=== PATIENT | male | born 1940 | race Hispanic/Latino ===

== ENCOUNTER 2018-09-01 10:43 | Emergency (ER) | payer MEDICARE ==
[2018-09-01] MEDS ORDERED: BOOSTRIX IM ONE (10:48)
--- NOTE | 2018-09-01 11:32 | Emergency Department Report ---
ED Head Injury/Laceration HPI - HPI Occurred When: Today Mechanism: Fall Location: Frontal Pain: Severe Tetanus Status: Unknown Symptoms: Loss of Consciousness: No, Nausea: No, Blurred Vision: No, Unusual Behavior: No, Headache: Yes, Swelling: Yes, Bruising: No, Break in Skin: No, Bleeding: Yes Other History: Mr. Ratliff is a very pleasant 78-year-old male who presents after head injury with laceration. He tripped on while walking up his porch steps. He fell and cut his forehead on the corner of a plastic toolbox. No LOC. He was able to get up on his own. He denies chest pain. No chest pain. No Back pain. No preceding symptoms. He has been in good health recently. He has 9/10 anterior sharp headache central centered on the forehead laceration. After the incident he was able to ambulate to a private vehicle. He was brought to the ED by family friend. He has hypersensitivity to tetanus shot. Otherwise has been in good health. In May he recovered from double pneumonia. He did not require hospitalization. He is closely followed by his PCP Dr. Maldonado. He has history of COPD. He's never had a stroke or heart attack. However he does have a "heart condition". Consequently takes both aspirin and Plavix. He has been taking both of these medications for the past 19 years. He stopped smoking cigarettes and drinking alcohol 19 years ago. He is a . His of lupus complications. He has 3 children. He has numerous grandchildren. All of his children and grandchildren live locally. He retired from a [employer] plant. 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 He is very active although he is a . 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 He enjoyes professional football. He is a fan of the [employer]. ED General PMH - Past Medical History General Medical History: heart disease, lung disease Surgical History: noncontributory - Family History Significant Family History: no pertinent family hx - Social History Smoking Status: Former Smoker Alcohol Use: sober ED Review of Systems ROS: Stated complaint: TRAUMA Other details as noted in HPI Comment: All other systems reviewed and negative Constitutional: denies: fever, malaise Respiratory: cough (chronic cough due to COPD) Cardiovascular: denies: chest pain Head Inj w/lac Physical Exam - Exam General: Vital signs noted. No distress. Alert and acting appropriately. Head: Yes PERRL, No Epistaxis, No Stepoff/Deformity, No Abrasion, No Foreign Body Laceration Location: Frontal Chest, Abd, & Ext: Yes Clear Lung Sounds, Yes Regular Heart Rhythm, No Neck Pain, No Chest Injury/Pain, No Abdominal Tenderness, No Back Tenderness, No Extremity Injury Neuroligical (Head Inj W/O Lac: Yes Normal Speech, Yes Normal Gait, No Lethargy, No Disorientation, No Focal Numbness, No Focal Weakness Exam: 4 cm horizontal jagged laceration with pulsatile bleeding right central forehead - Laceration /Wound Repair Right Anterior Head Wound Location: head, face Wound Length (cm): 4 Wound's Depth, Shape: into muscle, linear Wound Explored: clean Betadine Prep?: Yes Anesthesia: Lidocaine w/ Epi Volume Anesthetic (ccs): 6 Wound Debrided: minimal Wound Repaired With: sutures Suture Size/Type: 5:0, nylon Number of Sutures: 6 Layer Closure?: Yes Deep Layer Suture Size/Type: 4:0 Number Deep Layer Sutures: 2 Sterile Dressing Applied?: Yes Progress: Pulsatile bleeding require 2 sutures of 4-0 Vicryl figure 8 stitch 6 sutures 5-0 nylon simple interrupted superficial layer ED Critical Care Note - Critical Care Note Comments: He came to the bedside immediately upon notification by nurse. The patient required bleeding control. Due to sensitivity, tetanus booster was held. CT head: No skull fracture, no intracranial hemorrhage. Mr. Ratliff understood wound care instructions. He Understands to Keep the Bandage on for 2 Days Considering risk of the Bleeding. He Plans to Hold Aspirin and Plavix for the Next Few Days. I Did Agree That This Would Be Reasonable. He Also Understood Close Head Injury Instructions. Discharged home in stable and improved condition. I reviewed CT images personally. Also reviewed radiology report. No acute process with incidental findings noted. ED Disposition Clinical Impression: Closed head injury, Laceration of forehead, complicated Disposition: DC-01 TO HOME OR SELFCARE Is pt being admited?: No Does the pt Need Aspirin: No Condition: Stable Instructions: Suture Care (ED), Minor Head Injury (ED) Additional Instructions: Please return next week in 7 days to have the sutures removed. Please return sooner if you have signs of infection. Referrals: PRIMARY CARE, [Primary Care Provider] - 3-5 Days
[2018-09-01] MEDS ORDERED: TYLENOL PO ONE (11:39)
--- NOTE | 2018-09-01 12:39 | Cat Scan Report ---
CT HEAD WITHOUT CONTRAST INDICATION: Elderly head trauma on aspirin/Plavix. COMPARISON: None similar. FINDINGS: Noncontrast head CT demonstrates age-appropriate, mildly enlarged ventricles and sulci. Slight periventricular hypodensities. No definite acute infarct, hemorrhage, mass effect or midline shift. No abnormal extra-axial fluid collections. Normal posterior fossa with preserved basilar cisterns. Possible bilateral cataract surgery. Rightward nasal septal deviation anteriorly. Slight frontoethmoid mucosal thickening, right more than left. Clear remainder imaged paranasal sinuses and mastoid air cells. Mild atherosclerotic ICA calcifications. Intact calvarium. Slight frontal scalp soft tissue swelling or scar, more so on the right as on axial image 32. Please correlate. Edentulous mandible and possible maxillary denture. CONCLUSION: No acute intracranial CT abnormality with few incidental findings, as above. Please correlate. Thank you for the opportunity to participate in this patient's care.
[2018-09-01 13:04] VITALS: BP 130/75
== END 2018-09-01 13:08 | disposition home or self-care (01) ==
LOC: ED 10:43
DX: S09.8XXA Other specified injuries of head, initial encounter (principal); S01.81XA Laceration without foreign body of other part of head, initial encounter; Z87.891 Personal history of nicotine dependence; Z88.6 Allergy status to analgesic agent; W01.198A Fall on same level from slipping, tripping and stumbling with subsequent striking against other object, initial encounter; Y93.01 Activity, walking, marching and hiking; Y99.8 Other external cause status; Y92.019 Unspecified place in single-family (private) house as the place of occurrence of the external cause
CPT/HCPCS: 70450; 99283

== ENCOUNTER 2018-09-09 08:33 | Emergency (ER) | payer MEDICARE ==
--- NOTE | 2018-09-09 08:51 | Emergency Department Report ---
Suture/Staple Removal - [facility] Chief Complaint: Laceration/Recheck/Suture Stated Complaint: STITCHES REMOVED Time Seen by Provider: 09/09/18 08:45 When Sutures or [place] Placed: 5-7 Days Ago Wound Location: forehead ED Review of Systems ROS: Stated complaint: STITCHES REMOVED Other details as noted in HPI Constitutional: denies: chills, fever Eyes: denies: eye pain, eye discharge, vision change ENT: denies: ear pain, throat pain Respiratory: denies: cough, shortness of breath, wheezing Cardiovascular: denies: chest pain, palpitations Endocrine: no symptoms reported Gastrointestinal: denies: abdominal pain, nausea, diarrhea Genitourinary: denies: urgency, dysuria Musculoskeletal: denies: back pain, joint swelling, arthralgia Skin: denies: rash, lesions Neurological: denies: headache, weakness, paresthesias Psychiatric: denies: anxiety, depression Hematological/Lymphatic: denies: easy bleeding, easy bruising ED Past Medical Hx - Past Medical History Hx Hypertension: Yes Hx GERD: Yes Hx Arthritis: Yes Hx COPD: Yes Additional medical history: ANGINA - Surgical History Additional Surgical History: HIATAL HERNIA. LEFT ANKLE SURGERY - Social History Smoking Status: Never Smoker Substance Use Type: None - Medications Home Medications: Home Medications Medication Instructions Recorded Confirmed Last Taken Type Aspirin BABY CHEW TAB 04/06/15 04/06/15 Unknown History Clopidogrel [Plavix] 04/06/15 04/06/15 Unknown History Suture Removal Exam - Exam General: Vital signs noted. No distress. Alert and acting appropriately. Wound: No Pathologic Erythema, No Tenderness, No Drainage, No Pus, No Wound Dehiscence Other Systems: All other systems reviewed and are unremarkable. wound healing wall. no cellulitis or discharge. no edema ED Course Vital Signs 09/09/18 08:39 Temperature 98.5 F Pulse Rate 69 Respiratory 18 Rate Blood Pressure 132/59 O2 Sat by Pulse 99 Oximetry ED Recheck MDM - Differential Diagnosis Wound Recheck, Suture/Staple Removal (six removed without complications. ) Critical care attestation.: If time is entered above; I have spent that time in minutes in the direct care of this critically ill patient, excluding procedure time. ED Disposition Clinical Impression: Visit for suture removal Disposition: - TO HOME OR SELFCARE Is pt being admited?: No Does the pt Need Aspirin: No Condition: Stable Instructions: Suture Removal (ED) Referrals: [facility] [Provider Group] - 3-5 Days
== END 2018-09-09 09:11 | disposition home or self-care (01) ==
LOC: ED 08:33

== ENCOUNTER 2019-06-05 14:35 | Inpatient (IN) | payer MEDICARE ==
[2019-06-05] MEDS ORDERED: D50W (25GM) Syringe IV ONE ×3 (14:49→22:58)
[2019-06-05 15:17] LABS: Basophils % (Auto) 0.3 % (0.0-1.8); Eosinophils % (Auto) 0.3 % (0.0-4.3); Hematocrit 30.2 % (35.5-45.6); Hemoglobin 10.2 gm/dl (11.8-15.2); Lymphocytes % (Auto) 8.3 % (13.4-35.0); Mean Corpuscular HGB Conc 34 % (32-34); Mean Corpuscular Volume 96 fl (84-94); Monocytes # (Auto) 0.6 K/mm3 (0.0-0.8); Monocytes % (Auto) 5.5 % (0.0-7.3); Platelet Count 196 K/mm3 (140-440); Red Blood Count 3.15 M/mm3 (3.65-5.03)
--- NOTE | 2019-06-05 15:32 | Emergency Department Report ---
ED General Adult HPI - General Chief complaint: Hypoglycemia Stated complaint: DIABETIC/HYPOGLYCEMIA Time Seen by Provider: 06/05/19 14:52 Source: patient, EMS Mode of arrival: Stretcher Limitations: No Limitations - History of Present Illness Initial comments: This is a 79-year-old male who is presenting with a low blood sugar. Patient states he was at home and was having a difficult time walking paramedics were called. Glucose was 26 at the time of their arrival. She was started on D5 and on arrival his blood sugar was 56. Patient given amp of D50 and now the patient states he feels improved. Patient's is back to baseline. Patient states he does not have a history of diabetes and is not on insulin or oral hypoglycemics. Patient states he was told that he may have borderline diabetes in the past. Patient denies any chest pain shortness of breath fevers chills nausea vomiting diarrhea. - Related Data Home Medications Medication Instructions Recorded Confirmed Last Taken Aspirin BABY CHEW TAB 04/06/15 04/06/15 Unknown Clopidogrel [Plavix] 04/06/15 04/06/15 Unknown Allergies Allergy/AdvReac Type Severity Reaction Status Date / Time ibuprofen AdvReac STOMACH Verified 09/09/18 08:39 UPSET TETANUS AdvReac Rash Uncoded 04/06/15 14:15 ED Review of Systems ROS: Stated complaint: DIABETIC/HYPOGLYCEMIA Other details as noted in HPI Comment: All other systems reviewed and negative ED Past Medical Hx - Past Medical History Previous Medical History?: Yes Hx Hypertension: Yes Hx GERD: Yes Hx Arthritis: Yes Hx COPD: Yes Additional medical history: ANGINA - Surgical History Past Surgical History?: Yes Additional Surgical History: HIATAL HERNIA. LEFT ANKLE SURGERY - Social History Smoking Status: Former Smoker Substance Use Type: None - Medications Home Medications: Home Medications Medication Instructions Recorded Confirmed Last Taken Type Aspirin BABY CHEW TAB 04/06/15 04/06/15 Unknown History Clopidogrel [Plavix] 04/06/15 04/06/15 Unknown History ED Physical Exam - General Limitations: No Limitations General appearance: alert, in no apparent distress - Head Head exam: Present: atraumatic, normocephalic - Eye Eye exam: Present: normal appearance, PERRL, EOMI - ENT ENT exam: Present: mucous membranes moist - Neck Neck exam: Present: normal inspection - Respiratory Respiratory exam: Present: normal lung sounds bilaterally, wheezes, rales, rhonchi, stridor. Absent: respiratory distress - Cardiovascular Cardiovascular Exam: Present: regular rate, normal rhythm. Absent: systolic murmur, diastolic murmur, rubs, gallop - GI/Abdominal GI/Abdominal exam: Present: soft, normal bowel sounds - Rectal Rectal exam: Present: deferred - Extremities Exam Extremities exam: Present: normal inspection - Back Exam Back exam: Present: normal inspection - Neurological Exam Neurological exam: Present: alert, oriented X3 - Psychiatric Psychiatric exam: Present: normal affect, normal mood - Skin Skin exam: Present: warm, dry, intact, normal color. Absent: rash ED Course Vital Signs 06/05/19 06/05/19 14:45 14:56 Temperature 98.2 F Pulse Rate 74 Respiratory 16 Rate Blood Pressure 121/43 121/43 O2 Sat by Pulse 95 97 Oximetry ED Medical Decision Making - Lab Data Result diagrams: 06/05/19 15:04 06/05/19 15:04 Lab Results 06/05/19 06/05/19 06/05/19 Range/Units 14:52 15:04 15:04 WBC 11.6 H (4.5-11.0) K/mm3 RBC 3.15 L (3.65-5.03) M/mm3 Hgb 10.2 L (11.8-15.2) gm/dl Hct 30.2 L (35.5-45.6) % MCV 96 H (84-94) fl MCH 32 (28-32) pg MCHC 34 (32-34) % RDW 14.0 (13.2-15.2) % Plt Count 196 (140-440) K/mm3 Lymph % (Auto) 8.3 L (13.4-35.0) % Ray % (Auto) 5.5 (0.0-7.3) % Eos % (Auto) 0.3 (0.0-4.3) % Baso % (Auto) 0.3 (0.0-1.8) % Lymph # 1.0 L (1.2-5.4) K/mm3 Ray # 0.6 (0.0-0.8) K/mm3 Eos # 0.0 (0.0-0.4) K/mm3 Baso # 0.0 (0.0-0.1) K/mm3 Seg Neutrophils % 85.6 H (40.0-70.0) % Seg Neutrophils # 10.0 H (1.8-7.7) K/mm3 Sodium 135 L (137-145) mmol/L Potassium 4.7 (3.6-5.0) mmol/L Chloride 98.0 (98-107) mmol/L Carbon Dioxide 21 L (22-30) mmol/L Anion Gap 21 mmol/L BUN 42 H (9-20) mg/dL Creatinine 2.7 H (0.8-1.5) mg/dL Estimated GFR 23 ml/min BUN/Creatinine Ratio 16 % Glucose 167 H (75-100) mg/dL POC Glucose 52 L (70-105) Calcium 8.5 (8.4-10.2) mg/dL - Medical Decision Making After receiving D50 and eating the patient's blood sugars normalized. Patient states he does not take insulin or oral hypoglycemics. Patient's family is arrived states that he lives alone and they think he may not be eating and drinking well. Patient states he did have some Gatorade last night. Patient states he doesn't remember if he 8. Patient also after we discussed his laboratory studies stated that his mouth was dry. Patient does have a prerenal pattern for his kidney function. Patient received normal saline for hydration. Patient be admitted to the hospitalist service for further observation and workup for hypoglycemia of unknown etiology. Critical care attestation.: If time is entered above; I have spent that time in minutes in the direct care of this critically ill patient, excluding procedure time. ED Disposition Clinical Impression: Hypoglycemia, Acute renal insufficiency, Dehydration Disposition: OP ADMIT IP TO THIS HOSP Is pt being admited?: Yes Does the pt Need Aspirin: No Condition: Stable Time of Disposition: 16:52
[2019-06-05 15:39] LABS: Calcium 8.5 mg/dL (8.4-10.2)
[2019-06-05] MEDS ORDERED: NACL 0.9% 1000 ML 1,000 ML IV ONE (16:05)
[2019-06-05] MEDS ORDERED: NACL 0.9% 500 ML 500 ML IV ONE (16:42)
--- NOTE | 2019-06-05 16:56 | History and Physical Report ---
History of Present Illness Chief complaint: I feel weak History of present illness: 79 YO Male with HTN, GERD, OA, COPD presents to ED for evaluation. Pt states that he has experienced weakness over the past 1 week, and has a difficult time walking. Pt acknowledges recurrent falls. EMS notified, and upon arrival the p bridget was found to have weakness, and hypoglycemia with blood glucose in the 50's. Pt subsequently transported to [facility]. Pt seen and evaluated in ED and found to have Acute Kidney Injury, SIRS suspected secondary to UTI. Pt admitted to ABBI unit and initiated on IV antibiotic therapy. PT consulted for debility complicated by recurrent falls. Pt denies fever, chills, CP, Palpitations, Syncope, BRBPR, Productive cough, skin rash, vertigo, loss of bowel/bladder continence, unilateral leg swelling, calf pain, prolonged travel/immobiilty, Individual/Family History of DVT/PE/Bleeding/Blood Clotting Disorders. No prior admission for review. No medication listed for reconciliation at time of admission. Past History Past Medical History: other (see hpi) Past Surgical History: hernia repair, Other (ankle surgery) Social history: , Lives alone. denies: smoking, alcohol abuse, prescription drug abuse Family history: hypertension Medications and Allergies Allergies Allergy/AdvReac Type Severity Reaction Status Date / Time ibuprofen AdvReac STOMACH Verified 09/09/18 08:39 UPSET TETANUS AdvReac Rash Uncoded 04/06/15 14:15 Home Medications Medication Instructions Recorded Confirmed Last Taken Type Aspirin BABY CHEW TAB 04/06/15 04/06/15 Unknown History Clopidogrel [Plavix] 04/06/15 04/06/15 Unknown History Active Meds: Active Medications Sodium Chloride (Nacl 0.9% 1000 Ml) 1,000 mls @ 999 mls/hr IV BOLUS ONE Stop: 06/05/19 17:05 Sodium Chloride (Nacl 0.9% 500 Ml) 500 mls @ 999 mls/hr IV ONCE ONE Stop: 06/05/19 17:12 Review of Systems Constitutional: weakness, no weight loss, no weight gain, no fever, no chills Ears, nose, mouth and throat: no ear pain, no ear discharge, no tinnitis, no decreased hearing, no nasal congestion, no nasal discharge Cardiovascular: no chest pain, no orthopnea, no palpitations, no rapid/irregular heart beat, no edema Respiratory: no cough, no cough with sputum, no excessive sputum, no hemoptysis, no dyspnea on exertion Gastrointestinal: no nausea, no vomiting, no diarrhea, no constipation Genitourinary Male: no hematuria, no flank pain, no discharge, no urinary frequency, no urinary hesitancy Rectal: no pain, no incontinence, no bleeding Musculoskeletal: no neck stiffness, no neck pain, no shooting arm pain, no arm numbness/tingling, no low back pain, no shooting leg pain Integumentary: no rash, no pruritis, no redness, no sores, no wounds Neurological: weakness, no head injury, no transient paralysis, no paralysis, no numbness, no tingling, no seizures Psychiatric: no anxiety, no memory loss, no change in sleep habits, no sleep disturbances, no insomnia, no hypersomnia, no change in appetite, no change in libido, no suicidal ideation Endocrine: no cold intolerance, no heat intolerance, no polyphagia, no excessive thirst, no polydipsia, no polyuria, no nocturia, no flushing Hematologic/Lymphatic: no easy bruising, no easy bleeding, no lymphadenopathy, no lymphedema Allergic/Immunologic: no urticaria, no wheezing, no persistent infections, no anaphylaxis Exam - Constitutional Vitals: Temp Pulse Resp BP Pulse Ox 98.2 F 74 16 121/43 97 06/05/19 14:56 06/05/19 14:56 06/05/19 14:56 06/05/19 14:56 06/05/19 14:56 General appearance: Present: mild distress - EENT Eyes: Present: PERRL ENT: hearing intact, clear oral mucosa - Neck Neck: Present: supple, normal ROM - Respiratory Respiratory effort: normal Respiratory: bilateral: CTA - Cardiovascular Heart Sounds: Present: S1 & S2. Absent: rub, click - Extremities Extremities: pulses symmetrical, No edema Peripheral Pulses: within normal limits - Abdominal General gastrointestinal: Present: soft, non-tender, non-distended, normal bowel sounds Male genitourinary: Present: normal - Integumentary Integumentary: Present: clear, warm, dry - Musculoskeletal Musculoskeletal: generalized weakness - Psychiatric Psychiatric: appropriate mood/affect, intact judgment & insight - Neurologic Neurologic: CNII-XII intact, moves all extremities, no gait normal Results - Labs CBC & Chem 7: 06/05/19 15:04 06/05/19 15:04 Labs: Abnormal lab results 06/05/19 06/05/19 06/05/19 Range/Units 14:52 15:04 15:04 WBC 11.6 H (4.5-11.0) K/mm3 RBC 3.15 L (3.65-5.03) M/mm3 Hgb 10.2 L (11.8-15.2) gm/dl Hct 30.2 L (35.5-45.6) % MCV 96 H (84-94) fl Lymph % (Auto) 8.3 L (13.4-35.0) % Lymph # 1.0 L (1.2-5.4) K/mm3 Seg Neutrophils % 85.6 H (40.0-70.0) % Seg Neutrophils # 10.0 H (1.8-7.7) K/mm3 Sodium 135 L (137-145) mmol/L Carbon Dioxide 21 L (22-30) mmol/L BUN 42 H (9-20) mg/dL Creatinine 2.7 H (0.8-1.5) mg/dL Glucose 167 H (75-100) mg/dL POC Glucose 52 L (70-105) Assessment and Plan - Patient Problems (1) TAMICA (acute kidney injury) Current Visit: Yes Status: Acute Plan to address problem: IVF resuscitation therapy, urine electrolytes, nephrology consulted, renal ultrasound, monitor uop q shift, avoid nephrotoxic agents (2) UTI (urinary tract infection) Current Visit: Yes Status: Acute Qualifiers: Encounter type: initial encounter Plan to address problem: IV antibiotic therapy, urinalysis, CBC, CMP, (3) SIRS due to infectious process with organ dysfunction Current Visit: Yes Status: Acute Plan to address problem: IV antibiotic therapy, IVF resuscitation therapy, CBC, CMP, chest x ray, ur inalysis, (4) COPD (chronic obstructive pulmonary disease) Current Visit: Yes Status: Acute Qualifiers: Emphysema type: unspecified Plan to address problem: chest x ray, supplemental oxygen, nebulizer therapy, pulmonary toilet (5) Debility Current Visit: Yes Status: Acute Plan to address problem: PT consulted, supportive care. (6) Advance care planning Current Visit: Yes Status: Acute Plan to address problem: +30 minutes, Discussed code status, PT, possible need for PT, Inpatient rehab versus home PT. (7) DVT prophylaxis Current Visit: Yes Status: Acute Plan to address problem: SCD to BLE while in bed, supportive care.
[2019-06-05] MEDS ORDERED: PROVENTIL IH PRN (16:57)
[2019-06-05] MEDS ORDERED: ZOFRAN IV PRN (16:57)
[2019-06-05] MEDS ORDERED: TYLENOL PO PRN (16:57)
[2019-06-05] MEDS ORDERED: SODIUM CHLORIDE FLUSH SYRINGE 10 ML IV PRN (16:57)
--- NOTE | 2019-06-05 17:51 | XRay Report ---
CHEST 1 VIEW INDICATION / CLINICAL INFORMATION: dypsnea. COMPARISON: None available. FINDINGS: SUPPORT DEVICES: None. HEART / MEDIASTINUM: No significant abnormality. LUNGS / PLEURA: No significant pulmonary or pleural abnormality. No pneumothorax. There are few incre ased markings at the right base. ADDITIONAL FINDINGS: No significant additional findings. IMPRESSION: 1. No significant change Signer Name: Krystian Dueñas MD Signed: 06/05/2019 5:46 PM Workstation Name: [id number]
[2019-06-05] MEDS ORDERED: ROCEPHIN/NS 1 GM/50 ML 1 GM/50 ML BAG IV SCH (18:00)
[2019-06-05] MEDS ORDERED: ROCEPHIN/NS 1 GM/50 ML 1 GM/50 ML BAG IV ONE (18:30)
--- NOTE | 2019-06-05 19:23 | Ultrasound Report ---
ULTRASOUND RENAL INDICATION: deirdre. COMPARISON: No relevant prior imaging study available. FINDINGS: RIGHT KIDNEY: Size: 11.2 cm. Echogenicity: Normal. Cortical thickness: Normal. Hydronephrosis: None. Cyst or mass: None. Stones: None. LEFT KIDNEY: Size: 13.6 cm. Echogenicity: Normal. Cortical thickness: Normal. Hydronephrosis: None. Cyst or mass: None. Stones: None. Urinary Bladder: No significant abnormality. Free Fluid: None. Additional Findings: None. IMPRESSION 1. No acute sonographic abnormality of the kidneys. Signer Name: Krystian Dueñas MD Signed: 06/05/2019 7:19 PM Workstation Name: [id number]
[2019-06-05] MEDS: SODIUM CHLORIDE FLUSH SYRINGE 10 ML IV SCH (22:24)
[2019-06-06] MEDS ORDERED: D10W IV ONE (01:00)
[2019-06-06] MEDS ORDERED: D10W 250 ML IV SCH (01:00)
--- NOTE | 2019-06-06 01:00 | Event Note ---
Date: 06/06/19 PATIENT WITH PERXISTENT HYPOGLYCEMIA DESPITE THE INJECTION OF AMP OD D50W. PLAN; WILL START PATIENT ON I.V D10W AT 50ML/HR FOR A TOTAL OF 250 ML WITH HOURLY ACCUCHECKS
[2019-06-06 03:42] LABS: Creatinine,Urine 73.5 mg/dL (0.1-20.0)
[2019-06-06 03:48] LABS: Bilirubin,Urine NEG (Negative); Blood,Urine NEG (Negative); Color,Urine Yellow (Yellow); Mucus,Urine FEW /HPF; Protein,Urine <15 mg/dL mg/dL (Negative); Urobilinogen,Urine < 2.0 mg/dL (<2.0); WBC,Urine < 1.0 /HPF (0.0-6.0)
[2019-06-06] MEDS ORDERED: GLUCAGEN IM ONE (04:00)
[2019-06-06] MEDS ORDERED: D50W (25GM) Syringe IV PRN (06:03)
[2019-06-06] MEDS ORDERED: GLUCAGEN IM PRN (06:05)
[2019-06-06 06:20] LABS: Basophils # (Auto) 0.1 K/mm3 (0.0-0.1); Basophils % (Auto) 1.1 % (0.0-1.8); Eosinophils % (Auto) 0.4 % (0.0-4.3); Hemoglobin 9.7 gm/dl (11.8-15.2); Lymphocytes # (Auto) 1.7 K/mm3 (1.2-5.4); Mean Corpuscular HGB Conc 34 % (32-34); Mean Corpuscular Volume 96 fl (84-94); Monocytes # (Auto) 0.8 K/mm3 (0.0-0.8); Monocytes % (Auto) 7.4 % (0.0-7.3); Platelet Count 192 K/mm3 (140-440); Red Blood Count 3.02 M/mm3 (3.65-5.03); Red Cell Distribution Width 14.3 % (13.2-15.2)
[2019-06-06 06:40] LABS: Calcium 8.1 mg/dL (8.4-10.2)
[2019-06-06] MEDS: HumuLIN R SUB-Q SCH ×4 (07:33→22:24)
--- NOTE | 2019-06-06 07:54 | Progress Note ---
Assessment and Plan Assessment and plan: 79 YO Male with HTN, GERD, OA, COPD presents to ED for evaluation. Pt states that he has experienced weakness over the past 1 week, and has a difficult time walking. Pt acknowledges recurrent falls. EMS notified, and upon arrival the patient was found to have weakness, and hypoglycemia with blood glucose in the 50's. Pt subsequently transported to [facility]. Pt denies fever, chills, CP, Palpitations, Syncope, BRBPR, Productive cough, skin rash, vertigo, loss of bowel/bladder continence, unilateral leg swelling, calf pain, prolonged travel/immobiilty, Individual/Family History of DVT/PE/Bleeding/Blood Clotting Disorders * In ED and found to have Acute Kidney Injury, SIRS suspected secondary to UTI. * Pt admitted to ABBI unit and initiated on IV antibiotic therapy. PT consulted for debility complicated by recurrent falls. No prior admission for review. * Hypoglycemia persisted through the night, started on D5 this am. * Patient states he does not take insulin or oral hypoglycemics and although had been diagnosed with boardline DM is not on any medication. Patient's family is arrived states that he lives alone and they think he may not be eating and drinking well. Renal Ultrasound: IMPRESSION 1. No acute sonographic abnormality of the kidneys. CXR: IMPRESSION: 1. No significant change (1) Hypoglycemia-Persistent Start on D5 Recheck K at noon. work up for hypoglycemia (2) TAMICA (acute kidney injury) SECONDARY TO VASOMOTOR NEPHROPATHY Current Visit: Yes Status: Acute Plan to address problem: IVF resuscitation therapy, urine electrolytes, nephrology consulted, renal ultrasound, monitor uop q shift, avoid nephrotoxic agents (3) UTI (urinary tract infection)- RULED OUT Will stop empiric antibiotics (4) SIRS due to infectious process with organ dysfunction Current Visit: Yes Status: Acute Plan to address problem: IV antibiotic therapy, IVF resuscitation therapy, CBC, CMP, chest x ray, urinalysis, (4) COPD (chronic obstructive pulmonary disease) Current Visit: Yes Status: Acute Qualifiers: Emphysema type: unspecified Plan to address problem: Chest x ray reviewed supplemental oxygen, nebulizer therapy, pulmonary toilet (5) Debility Current Visit: Yes Status: Acute Plan to address problem: PT consulted, supportive care. (6) Advance care planning Current Visit: Yes Status: Acute Plan to address problem: +30 minutes, Discussed code status, PT, possible need for PT, Inpatient rehab versus home PT. (7) Poor Po intake Countersinker consult (8)DVT prophylaxis Current Visit: Yes Status: Acute Plan to address problem: SCD to BLE while in bed, supportive care. History Interval history: f/u Hypoglycemia and frequent falls Hospitalist Physical - Constitutional Vitals: Temp Pulse Resp BP Pulse Ox 97.8 F 66 20 110/43 98 06/06/19 02:16 06/06/19 02:16 06/06/19 02:16 06/06/19 02:16 06/06/19 02:16 General appearance: Present: mild distress - EENT Eyes: Present: PERRL, EOM intact ENT: hearing intact - Neck Neck: Present: supple, normal ROM - Respiratory Respiratory effort: normal Respiratory: bilateral: CTA - Cardiovascular Rhythm: regular Heart Sounds: Present: S1 & S2. Absent: systolic murmur, diastolic murmur - Extremities Extremities: no ischemia, pulses intact, pulses symmetrical, No edema, normal temperature, normal color, Full ROM Peripheral Pulses: within normal limits - Abdominal General gastrointestinal: soft, non-tender, distended, normal bowel sounds - Integumentary Integumentary: Present: clear, warm - Psychiatric Psychiatric: appropriate mood/affect, cooperative - Neurologic Neurologic: CNII-XII intact, moves all extremities, other - Allied Health Allied health notes reviewed: nursing Results - Labs CBC & Chem 7: 06/06/19 05:43 06/06/19 05:43 Labs: Laboratory Last Values WBC 11.0 K/mm3 (4.5-11.0) 06/06/19 05:43 RBC 3.02 M/mm3 (3.65-5.03) L 06/06/19 05:43 Hgb 9.7 gm/dl (11.8-15.2) L 06/06/19 05:43 Hct 29.0 % (35.5-45.6) L 06/06/19 05:43 MCV 96 fl (84-94) H 06/06/19 05:43 MCH 32 pg (28-32) 06/06/19 05:43 MCHC 34 % (32-34) 06/06/19 05:43 RDW 14.3 % (13.2-15.2) 06/06/19 05:43 Plt Count 192 K/mm3 (140-440) 06/06/19 05:43 Lymph % (Auto) 15.0 % (13.4-35.0) 06/06/19 05:43 [place] % (Auto) 7.4 % (0.0-7.3) H 06/06/19 05:43 Eos % (Auto) 0.4 % (0.0-4.3) 06/06/19 05:43 Baso % (Auto) 1.1 % (0.0-1.8) 06/06/19 05:43 Lymph # 1.7 K/mm3 (1.2-5.4) 06/06/19 05:43 [place] # 0.8 K/mm3 (0.0-0.8) 06/06/19 05:43 Eos # 0.0 K/mm3 (0.0-0.4) 06/06/19 05:43 Baso # 0.1 K/mm3 (0.0-0.1) 06/06/19 05:43 Seg Neutrophils % 76.1 % (40.0-70.0) H 06/06/19 05:43 Seg Neutrophils # 8.4 K/mm3 (1.8-7.7) H 06/06/19 05:43 Sodium 137 mmol/L (137-145) 06/06/19 05:43 Potassium 5.1 mmol/L (3.6-5.0) H 06/06/19 05:43 Chloride 101.3 mmol/L (98-107) 06/06/19 05:43 Carbon Dioxide 22 mmol/L (22-30) 06/06/19 05:43 Anion Gap 19 mmol/L 06/06/19 05:43 BUN 40 mg/dL (9-20) H 06/06/19 05:43 Creatinine 2.3 mg/dL (0.8-1.5) H 06/06/19 05:43 Estimated GFR 27 ml/min 06/06/19 05:43 BUN/Creatinine Ratio 17 % 06/06/19 05:43 Glucose 23 mg/dL (75-100) L* 06/06/19 05:43 POC Glucose 121 (70-105) H 06/06/19 07:38 Calcium 8.1 mg/dL (8.4-10.2) L 06/06/19 05:43 Phosphorus 2.70 mg/dL (2.5-4.5) 06/06/19 05:43 Magnesium 2.40 mg/dL (1.7-2.3) H 06/06/19 05:43 Urine Color Yellow (Yellow) 06/06/19 03:17 Urine Turbidity Clear (Clear) 06/06/19 03:17 Urine pH 5.0 (5.0-7.0) 06/06/19 03:17 Ur Specific [place] 1.011 (1.003-1.030) 06/06/19 03:17 Urine Protein <15 mg/dl mg/dL (Negative) 06/06/19 03:17 Urine Glucose (UA) Neg mg/dL (Negative) 06/06/19 03:17 Urine Ketones Neg mg/dL (Negative) 06/06/19 03:17 Urine Blood Neg (Negative) 06/06/19 03:17 Urine Nitrite Neg (Negative) 06/06/19 03:17 Urine Bilirubin Neg (Negative) 06/06/19 03:17 Urine Urobilinogen < 2.0 mg/dL (<2.0) 06/06/19 03:17 Ur Leukocyte Esterase Neg (Negative) 06/06/19 03:17 Urine WBC (Auto) < 1.0 /HPF (0.0-6.0) 06/06/19 03:17 Urine RBC (Auto) 1.0 /HPF (0.0-6.0) 06/06/19 03:17 U Epithel Cells (Auto) < 1.0 /HPF (0-13.0) 06/06/19 03:17 Urine Mucus Few /HPF 06/06/19 03:17 Urine Creatinine 73.5 mg/dL (0.1-20.0) H 06/06/19 03:18 Urine Sodium 33 mmol/L 06/06/19 03:18 Active Medications - Current Medications Current Medications: Generic Name Dose Route Start Last Admin Trade Name Freq PRN Reason Stop Dose Admin Acetaminophen 650 mg 06/05/19 16:57 Tylenol PO Q4H PRN Pain MILD(1-3)/Fever >100.5/ROSE Albuterol 2.5 mg 06/05/19 16:57 Proventil IH Q4HRT PRN Shortness Of Breath Dextrose 50 ml 06/06/19 06:03 06/06/19 06:53 D50w (25gm) Syringe IV 50 ml PRN PRN Administration Hypoglycemia Glucagon 0.5 mg 06/06/19 06:05 Glucagen IM PRN PRN Hypoglycemia Ceftriaxone Sodium 1 gm in 50 mls @ 100 mls/hr 06/05/19 18:00 06/05/19 18:31 Rocephin/Ns 1 Gm/50 Ml IV 100 mls/hr Q24H MARIAH Administration Protocol Dextrose/Sodium Chloride 1,000 mls @ 75 mls/hr 06/06/19 08:00 D5ns IV DIRECT MARIAH Insulin Human Regular 0 units 06/06/19 07:30 06/06/19 07:33 Humulin R SUB-Q Not Given ACHS MARIAH Protocol Ondansetron HCl 4 mg 06/05/19 16:57 Zofran IV Q8H PRN Nausea And Vomiting Sodium Chloride 10 ml 06/05/19 22:00 06/05/19 22:24 Sodium Chloride Flush Syringe 10 Ml IV 10 ml BID MARIAH Administration Sodium Chloride 10 ml 06/05/19 16:57 Sodium Chloride Flush Syringe 10 Ml IV PRN PRN LINE FLUSH
[2019-06-06] MEDS ORDERED: D5NS 1,000 ML IV SCH (08:00)
[2019-06-06] MEDS: SODIUM CHLORIDE FLUSH SYRINGE 10 ML IV SCH ×2 (09:45→21:05)
[2019-06-06] MEDS ORDERED: NITROMIST TL PRN (10:59)
--- NOTE | 2019-06-06 11:37 | Cat Scan Report ---
CT ABDOMEN AND PELVIS WITHOUT CONTRAST HISTORY: Hypoglycemia. COMPARISON: None TECHNIQUE: Routine abdominal and pelvic CT exam performed without contrast. Lack of intravenous cont rast limits evaluation of the vascular and solid organs.. All CT scans at this location are performed using CT dose reduction for ALARA by means of automated exposure control. FINDINGS: CT ABDOMEN: Lung Bases: No significant abnormality. Liver: Normal. Biliary: The gallbladder is contracted with no stones. No pericholecystic fluid. Normal bile ducts. Spleen: No significant abnormality. Unenlarged. Pancreas: Mild fatty replacement. Adrenals: Normal. Kidneys: Bilateral nonspecific perinephric stranding. The renal collecting systems and ureters are no ndilated. No renal mass, calculus or cyst. Lymphatics: No lymphadenopathy. Vasculature: Moderate atherosclerotic calcification and tortuosity of the abdominal aorta. Bowel/Peritoneum: No significant abnormality. No free air. No free fluid. A large volume of stool thr oughout the colon. Postsurgical changes consistent with appendectomy. CT PELVIC: : Mild nonspecific thickening of the urinary bladder wall. No mass or calculus. Lymphatics: No lymphadenopathy. Normal rectum. Mild diverticulosis of a redundant sigmoid colon but no diverticulitis. Osseous Structures: No aggressive appearing osseous lesions. Additional Findings: None IMPRESSION: 1. Mild fatty replacement of the pancreas. 2. No mass. 3. Mild diverticulosis but no diverticulitis. Signer Name: Peng Marcano MD Signed: 06/06/2019 11:33 AM Workstation Name: [id number]
[2019-06-06] MEDS ORDERED: D10W 1,000 ML IV SCH (12:00)
[2019-06-06] MEDS ORDERED: NITROSTAT SL PRN (16:13)
--- NOTE | 2019-06-06 21:01 | Consultation ---
History of Present Illness - Reason for Consult Consult date: 06/06/19 acute renal failure, chronic renal failure, hyperkalemia - History of Present Illness The patient is an 79 YO male with history significant for HTN, GERD, OA, COPD and ?CKD who was brought into [facility] ED by EMS for evaluation of hypoglycemia. Patient is poor historian and most of the information was obtained from previous documentation. Pt reports having some weakness, decreased appetite, poor PO intake and weight loss. Pt denies fever, chills, dysuria, hematuria, N, V, D, abd pain, CP, dizziness, Syncope, cough, skin rash or leg swelling. EMS found him with blood glucose of 26. He was also found to have creatinine of 2.7. Patient was admitted with Acute kidney injury and hypoglycemia. Nephrology was consulted for further evaluation. Past History Past Medical History: COPD, hypertension, hyperlipidemia, renal failure, other (see hpi) Past Surgical History: hernia repair, Other (ankle surgery) Social history: , Lives alone. denies: smoking, alcohol abuse, prescription drug abuse Family history: hypertension Medications and Allergies Allergies Allergy/AdvReac Type Severity Reaction Status Date / Time ibuprofen AdvReac STOMACH Verified 09/09/18 08:39 UPSET TETANUS AdvReac Rash Uncoded 04/06/15 14:15 Home Medications Medication Instructions Recorded Confirmed Last Taken Type Clopidogrel [Plavix] 75 mg PO DAILY 04/06/15 06/06/19 06/05/19 09:00 History ISOSORBIDE MONOnitrate [Imdur ER] 60 mg PO BID 06/06/19 06/06/19 06/05/19 09:00 History Nitroglycerin [place] [Nitromist] 1 spray TL PRN PRN 06/06/19 06/06/19 Unknown History Pantoprazole [Protonix] 40 mg PO QDAY 06/06/19 06/06/19 06/05/19 09:00 History Potassium Chloride [K-Dur] 10 meq PO BID 06/06/19 06/06/19 06/05/19 09:00 History Pravastatin [Pravachol] 40 mg PO QHS 06/06/19 06/06/19 Unknown History Active Meds: Active Medications Acetaminophen (Tylenol) 650 mg PO Q4H PRN PRN Reason: Pain MILD(1-3)/Fever >100.5/ROSE Albuterol (Proventil) 2.5 mg IH Q4HRT PRN PRN Reason: Shortness Of Breath Clopidogrel Bisulfate (Plavix) 75 mg PO DAILY [facility] Dextrose (D50w (25gm) Syringe) 50 ml IV PRN PRN PRN Reason: Hypoglycemia Last Admin: 06/06/19 06:53 Dose: 50 ml Documented by: Glucagon (Glucagen) 0.5 mg IM PRN PRN PRN Reason: Hypoglycemia Dextrose (D10w) 1,000 mls @ 75 mls/hr IV DIRECT [facility] Insulin Human Regular (Humulin R) 0 units SUB-Q ACHS [facility]; Protocol Last Admin: 06/06/19 17:10 Dose: Not Given Documented by: Nitroglycerin (Nitrostat) 0.4 mg SL .Q5MIN PRN PRN Reason: Chest Pain Ondansetron HCl (Zofran) 4 mg IV Q8H PRN PRN Reason: Nausea And Vomiting Pantoprazole Sodium (Protonix) 40 mg PO QDAY [facility] Pravastatin Sodium (Pravachol) 40 mg PO QHS [facility] Sodium Chloride (Sodium Chloride Flush Syringe 10 Ml) 10 ml IV BID [facility] Last Admin: 06/06/19 09:45 Dose: Not Given Documented by: Sodium Chloride (Sodium Chloride Flush Syringe 10 Ml) 10 ml IV PRN PRN PRN Reason: LINE FLUSH Review of Systems Constitutional: weight loss, anorexia, fatigue, weakness, poor appetite, no weight gain, no fever, no chills Cardiovascular: high blood pressure, no chest pain, no orthopnea, no edema, no syncope, no lightheadedness, no shortness of breath, no leg edema Respiratory: no cough, no shortness of breath, no dyspnea on exertion Gastrointestinal: no abdominal pain, no nausea, no vomiting, no diarrhea Genitourinary Male: no dysuria, no hematuria Rectal: no bleeding Musculoskeletal: muscle weakness, no muscle cramps Integumentary: no rash, no sores, no wounds Neurological: no paralysis, no convulsions, no aphasia Exam - Vital Signs Vital signs: Vital Signs BP Pulse Ox 121/43 95 06/05/19 14:45 06/05/19 14:45 - General Appearance General appearance: well-developed, well-nourished, appears stated age, other (no distress) EENT: ATNC, PERRL, hearing intact, vision intact Neck: Present: neck supple, trachea midline Respiratory: Clear to Ascultation Heart: regular, S1S2, no murmurs Gastrointestinal: Present: normoactive bowel sounds. Absent: tenderness, distended Integumentary: no rash, warm and dry Neurologic: no focal deficit, no asterixis, alert and oriented x3 Musculoskeletal: Present: other (no edema) Results - Lab Results 06/06/19 05:43 06/06/19 14:37 Most recent lab results Calcium 8.1 mg/dL (8.4-10.2) L 06/06/19 05:43 Phosphorus 2.70 mg/dL (2.5-4.5) 06/06/19 05:43 Magnesium 2.40 mg/dL (1.7-2.3) H 06/06/19 05:43 Urine Creatinine 73.5 mg/dL (0.1-20.0) H 06/06/19 03:18 Urine Sodium 33 mmol/L 06/06/19 03:18 - Image Kidney/bladder ultrasound: report reviewed Assessment and Plan 1. Acute kidney injury: Vasomotor TAMICA in the setting of volume depletion. Renal US was negative for hydronephrosis. UA is bland. Renal function is improving. Continue IV fluids. Monitor renal function. Avoid nephrotoxic agents. Meds dosage based on GFR. 2. FEN: Hyperkalemia, monitor. On IV fluids with Dextrose. Metabolic acidosis, improving. Monitor lytes. 3. Hypoglycemia: D10 drip. 4. Hypertension: BP is controlled. 5. Leukocytosis.
[2019-06-06] MEDS ORDERED: PRAVACHOL PO SCH (22:00)
[2019-06-07 07:58] VITALS: BP 135/53
[2019-06-07 09:19] LABS: Albumin 3.2 g/dL (3.9-5); Calcium 8.6 mg/dL (8.4-10.2)
[2019-06-07] MEDS: SODIUM CHLORIDE FLUSH SYRINGE 10 ML IV SCH (09:46)
[2019-06-07] MEDS ORDERED: PROTONIX PO SCH (10:00)
[2019-06-07] MEDS ORDERED: PLAVIX PO SCH (10:00)
--- NOTE | 2019-06-07 11:48 | Discharge Summary ---
Providers - Providers Date of Admission: 06/05/19 16:57 Date of discharge: 06/07/19 Attending physician: KAROLINA LEMUS MD 06/05/19 17:08 Consult to Physician [CONS] Routine Comment: DR HORACE FONTENOT W/DR GRIJALVA @[id number] Consulting Provider: ROWENA DOCKERY Physician Instructions: Reason For Exam: TAMICA 06/05/19 18:01 Physical Therapy Evaluation and Treat [CONS] Routine Comment: Reason For Exam: weak 06/06/19 07:56 Consult to Dietitian/Nutrition [CONS] Routine Physician Instructions: Reason For Exam: Reason for Consult: Poor oral intake [facility] Reason for admission: hypoglycemia, TAMICA Condition: Stable Hospital course: 79 YO Male with HTN, GERD, OA, COPD presents to ED for evaluation. Pt states that he has experienced weakness over the past 1 week, and has a difficult time walking. Pt acknowledges recurrent falls. EMS notified, and upon arrival the patient was found to have weakness, and hypoglycemia with blood glucose in the 50's. Pt subsequently transported to [facility]. Pt denies fever, chills, CP, Palpitations, Syncope, BRBPR, Productive cough, skin rash, vertigo, loss of bowel/bladder continence, unilateral leg swelling, calf pain, prolonged travel/immobiilty, Individual/Family History of DVT/PE/Bleeding/Blood Clotting Disorders * In ED and found to have Acute Kidney Injury, SIRS suspected secondary to UTI. * Pt admitted to ABBI unit and initiated on IV antibiotic therapy. PT consulted for debility complicated by recurrent falls. No prior admission for review. * Hypoglycemia persisted through the night, started on D5 yesterday and I dced the D5 and patient's blood glucose was stable and discharged. * Patient states he does not take insulin but was on metformin and had been diagnosed with boardline DM is not on any medication. Patient's family is arrived states that he lives alone and they think he may not be eating and drinking well. Renal Ultrasound: IMPRESSION 1. No acute sonographic abnormality of the kidneys. CXR: IMPRESSION: 1. No significant change (1) Hypoglycemia-Persistent - Patient was treated with D5 and D10. This morning dextrose was Discontinued and blood sugar was high and discharged home (2) TAMICA (acute kidney injury) SECONDARY TO VASOMOTOR NEPHROPATHY - Resolved with IV fluids (3) UTI (urinary tract infection)- RULED OUT Will stop empiric antibiotics (4) SIRS due to infectious process with organ dysfunction - Resolved and antibiotics discontinued (4) COPD (chronic obstructive pulmonary disease) - Stable (5) Debility - PT evaluated him and no needs. Patient was seen and evaluated this morning patient said he doesn't want to stay in the hospital. He said he will go home anyway. I stop the dextrose and his blood sugar was actually high and discharged home. Advised to stop metformin and check with his PCP. Disposition: DC-01 TO HOME OR SELFCARE Time spent for discharge: 32 minutes - Discharge Diagnoses (1) TAMICA (acute kidney injury) Status: Acute (2) COPD (chronic obstructive pulmonary disease) Status: Acute Qualifiers: Emphysema type: unspecified (3) Debility Status: Acute Core Measure Documentation - Palliative Care Palliative Care/ Comfort Measures: Not Applicable - Core Measures Any of the following diagnoses?: none Exam - Physical Exam Narrative exam: Not in cardiopulmonary distress. The patient appeared well nourished and normally developed. Vital signs as documented. Head exam is unremarkable. No scleral icterus . Neck is without jugular venous distension, thyromegaly, or carotid bruits. Lungs are clear to auscultation. Cardiac exam reveals regular rate and Rhythm. First and second heart sounds normal. No murmurs, rubs or gallops. Abdominal exam reveals normal bowel sounds, no masses, no organomegaly and no aortic enlargement. Extremities are nonedematous and both femoral and pedal pulses are normal. BALLOON PILOT: Alert and oriented 3. No focal weakness. - Constitutional Vitals: Temp Pulse Resp BP Pulse Ox 98.2 F 68 20 135/53 97 06/07/19 07:15 06/07/19 10:00 06/07/19 07:15 06/07/19 07:15 06/07/19 07:15 Plan Activity: no restrictions Weight Bearing Status: Full Weight Bearing Diet: regular Follow up with: ARLETTE STEARNS MD [Primary Care Provider] - 7 Days
--- NOTE | 2019-06-07 12:05 | Progress Note ---
Assessment and Plan 1. Acute kidney injury: Vasomotor TAMICA in the setting of volume depletion. Renal US was negative for hydronephrosis. UA is bland. Renal function is better. Continue IV fluids. Monitor renal function. Avoid nephrotoxic agents. Meds dosage based on GFR. 2. FEN: Hyperkalemia, improved. Metabolic acidosis, monitor. Monitor lytes. 3. Hypoglycemia: Improved. 4. Hypertension: BP is controlled. 5. Leukocytosis: Improved. Examination: General appearance: well-developed, well-nourished, appears stated age, no distress HEENT: ATNC, LUIGI, hearing intact, vision intact Neck: neck supple, trachea midline Respiratory: Clear to Ascultation Heart: regular, S1S2, no murmurs Gastrointestinal: normoactive bowel sounds, not tender, not distended Integumentary: no rash, warm and dry Neurologic: no focal deficit, no asterixis, alert and oriented x3 Musculoskeletal: no edema Subjective Date of service: 06/07/19 Interval history: Patient was seen and examined at the bedside. Doing better. Objective - Vital Signs Vital signs: Vital Signs - 12hr 06/07/19 06/07/19 06/07/19 00:07 02:53 07:15 Temperature 99.7 F H 98.2 F Pulse Rate 79 77 69 Respiratory 20 20 Rate Blood Pressure 129/47 135/53 O2 Sat by Pulse 98 97 Oximetry 06/07/19 10:00 Temperature Pulse Rate 68 Respiratory Rate Blood Pressure O2 Sat by Pulse Oximetry - Lab 06/06/19 05:43 06/07/19 07:52 Most recent lab results Calcium 8.6 mg/dL (8.4-10.2) 06/07/19 07:52 Phosphorus 2.70 mg/dL (2.5-4.5) 06/06/19 05:43 Magnesium 2.40 mg/dL (1.7-2.3) H 06/06/19 05:43 Urine Creatinine 73.5 mg/dL (0.1-20.0) H 06/06/19 03:18 Urine Sodium 33 mmol/L 06/06/19 03:18 Medications & Allergies - Medications Allergies/Adverse Reactions: Allergies ibuprofen Adverse Reaction (Verified 09/09/18 08:39) STOMACH UPSET TETANUS Adverse Reaction (Uncoded 04/06/15 14:15) Rash Home Medications: Home Medications Medication Instructions Recorded Confirmed Last Taken Type Clopidogrel [Plavix] 75 mg PO DAILY 04/06/15 06/06/19 06/05/19 09:00 History ISOSORBIDE MONOnitrate [Imdur ER] 60 mg PO BID 06/06/19 06/06/19 06/05/19 09:00 History Nitroglycerin [place] [Nitromist] 1 spray TL PRN PRN 06/06/19 06/06/19 Unknown History Pantoprazole [Protonix TAB] 40 mg PO QDAY 06/06/19 06/06/19 06/05/19 09:00 History Potassium Chloride [K-Dur] 10 meq PO BID 06/06/19 06/06/19 06/05/19 09:00 History Pravastatin [Pravachol] 40 mg PO QHS 06/06/19 06/06/19 Unknown History Active Medications: Generic Name Dose Route Start Last Admin Trade Name Freq PRN Reason Stop Dose Admin Acetaminophen 650 mg 06/05/19 16:57 06/07/19 03:01 Tylenol PO 650 mg Q4H PRN Administration Pain MILD(1-3)/Fever >100.5/ROSE Albuterol 2.5 mg 06/05/19 16:57 Proventil IH Q4HRT PRN Shortness Of Breath Clopidogrel Bisulfate 75 mg 06/07/19 10:00 06/07/19 09:46 Plavix PO 75 mg DAILY MARIAH Administration Dextrose 50 ml 06/06/19 06:03 06/06/19 06:53 D50w (25gm) Syringe IV 50 ml PRN PRN Administration Hypoglycemia Glucagon 0.5 mg 06/06/19 06:05 Glucagen IM PRN PRN Hypoglycemia Nitroglycerin 0.4 mg 06/06/19 16:13 Nitrostat SL .Q5MIN PRN Chest Pain Ondansetron HCl 4 mg 06/05/19 16:57 Zofran IV Q8H PRN Nausea And Vomiting Pantoprazole Sodium 40 mg 06/07/19 10:00 06/07/19 09:46 Protonix PO 40 mg QDAY MARIAH Administration Pravastatin Sodium 40 mg 06/06/19 22:00 06/06/19 21:05 Pravachol PO 40 mg QHS MARIAH Administration Sodium Chloride 10 ml 06/05/19 22:00 06/07/19 09:46 Sodium Chloride Flush Syringe 10 Ml IV 10 ml BID MARIAH Administration Sodium Chloride 10 ml 06/05/19 16:57 Sodium Chloride Flush Syringe 10 Ml IV PRN PRN LINE FLUSH
== END 2019-06-07 13:30 | disposition home or self-care (01) | DRG 682 ==
LOC: ED 14:35 → 2B-ACE 16:57
PROVIDERS: ADMIT Internal Medicine; ATTEND Internal Medicine
DX: N17.0 Acute kidney failure with tubular necrosis (principal); R65.11 Systemic inflammatory response syndrome (SIRS) of non-infectious origin with acute organ dysfunction; E87.2 Acidosis; E16.2 Hypoglycemia, unspecified; E87.5 Hyperkalemia; I10 Essential (primary) hypertension; D72.829 Elevated white blood cell count, unspecified; K21.9 Gastro-esophageal reflux disease without esophagitis; M19.90 Unspecified osteoarthritis, unspecified site; R53.81 Other malaise; E86.0 Dehydration; J44.9 Chronic obstructive pulmonary disease, unspecified; Z79.899 Other long term (current) drug therapy; Z82.49 Family history of ischemic heart disease and other diseases of the circulatory system
CPT/HCPCS: 36415; 71045; 74176; 76770; 80048; 80053; 81001; 82570; 82947; 82962; 83735; 84100; 84132; 84300; 84681; 85025; 93005; 93010; 96374; G0378; A9270-GY; J0696; J1610; J7030; J7040; J7042